=== PATIENT | female | born 1990 | race Caucasian/White ===

== ENCOUNTER → 2024-04-07 09:16 | Outpatient (REF) | payer OTHER, SELFPAY | LOC: WDC 09:16 | PROVIDERS: ATTENDING PHYSICIAN Obstetrics & Gynecology; FAMILY PHYSICIAN Family Medicine | DX: N63.10 Unspecified lump in the right breast, unspecified quadrant (principal); N63.13 Unspecified lump in the right breast, lower outer quadrant | CPT/HCPCS: 76642; 77062; 77066 ==

== ENCOUNTER → 2024-07-18 15:55 | Outpatient (REF) | payer OTHER, SELFPAY | LOC: WDC 15:55 | PROVIDERS: ATTENDING PHYSICIAN Obstetrics & Gynecology; FAMILY PHYSICIAN Family Medicine | DX: R92.8 Other abnormal and inconclusive findings on diagnostic imaging of breast (principal) | CPT/HCPCS: 77061; 77065 ==

== ENCOUNTER → 2025-01-19 08:00 | Outpatient (REF) | payer OTHER, SELFPAY | LOC: WDC 08:00 | PROVIDERS: ATTENDING PHYSICIAN Nurse Practitioner Family; FAMILY PHYSICIAN Family Medicine | DX: R92.8 Other abnormal and inconclusive findings on diagnostic imaging of breast (principal) | CPT/HCPCS: 76642 ==

== ENCOUNTER → 2025-04-11 13:07 | Outpatient (REF) | payer OTHER, SELFPAY | LOC: PNTC 13:07 | PROVIDERS: ATTENDING PHYSICIAN Obstetrics & Gynecology | DX: Z34.90 Encounter for supervision of normal pregnancy, unspecified, unspecified trimester (principal) | CPT/HCPCS: 36415; 86850; 86900; 86901; 96372; J2790 ==

== ENCOUNTER 2025-05-05 10:25 | Inpatient (IN) | payer OTHER, SELFPAY ==
[2025-05-05 10:45] VITALS: BP 101/76; BMI 28.3
[2025-05-05 11:33] LABS: % Basophils 0.1 % (0-2); % Eosinophils 0.2 % (0-6); % Immature Granulocytes 0.5 % (0-0.5); % Lymphocytes 16.1 % (20.5-51.1); % Monocytes 4.9 % (1.7-9.3); % Neutrophils 78.2 % (42.2-75.2); Absolute Immature Granulocytes 0.1 10^3/uL (0-0.05); Absolute Lymphocytes 1.7 10^3/uL (1.2-3.4); Absolute Monocytes 0.5 10^3/uL (0.1-0.6); Hematocrit 33.1 % (37.0-47.0); Hemoglobin 11.9 g/dL (12.0-16.0); Mean Corpuscular Hgb 32.6 pg (27.0-31.0); Mean Corpuscular Volume 90.7 fL (81.0-99.0); Mean Platelet Volume 9.6 fL (7.4-10.4); Nucleated Red Blood Cells % 0 %; Platelet Count 183 10^3/uL (130-400); Red Blood Cell Count 3.65 10^6/uL (4.20-5.40); Red Cell Dist. Width 13.5 % (11.5-14.5); White Blood Cell Count 10.3 10^3/uL (4.8-10.8)
[2025-05-05] MEDS: SUBLIMAZE 100 MCG EPIDURAL (18:48)
[2025-05-05] MEDS: FENTANYL/BUPIVACAINE 100 EPIDURAL (18:48)
[2025-05-05] MEDS: LR 1000 IV (20:04)
[2025-05-06] MEDS: TYLENOL 650 MG PO ×3 (02:19→15:47)
[2025-05-06] MEDS: MOTRIN 600 MG PO ×4 (02:19→22:02)
[2025-05-06 05:48] LABS: Hemoglobin 11.4 g/dL (12.0-16.0)
[2025-05-06] MEDS: PRENATAL PLUS 1 TABLET PO (08:55)
[2025-05-06] MEDS: SENOKOT-S 1 TABLET PO (08:56)
[2025-05-06] MEDS: RHOGAM 300 MCG IM (11:18)
[2025-05-07] MEDS: PRENATAL PLUS 1 TABLET PO (08:10)
[2025-05-07] MEDS: SENOKOT-S 1 TABLET PO (08:19)
[2025-05-09 14:10] LABS: Syphilis/T. pallidum Ab Reflex Negative (Negative)
== END 2025-05-07 12:26 | disposition home or self-care (01) | DRG 807 ==
LOC: LDRP 10:25
PROVIDERS: Obstetrics & Gynecology; ADMITTING PHYSICIAN Obstetrics & Gynecology; FAMILY PHYSICIAN Family Medicine
PROC: 10E0XZZ Delivery of Products of Conception, External Approach (ICD-10-PCS; 2025-05-05)
PROC: 3E0234Z Introduction of Serum, Toxoid and Vaccine into Muscle, Percutaneous Approach (ICD-10-PCS; 2025-05-06)
DX: O70.0 First degree perineal laceration during delivery (principal); Z37.0 Single live birth; Z3A.40 40 weeks gestation of pregnancy
CPT/HCPCS: 36415; 85014; 85018; 85025; 85461; 86780; 86850; 86870; 86900; 86901; J2790